=== PATIENT | female | born 2000 | race African-American/Black ===

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

== ENCOUNTER 2022-10-31 09:03 | Emergency (ER) | payer OTHER, SELFPAY ==
[2022-10-31 09:16] VITALS: BP 143/64; PULSE 65; RESP 16; TEMP 36.6; O2SAT 100
--- NOTE | 2022-10-31 09:39 | ED.NAVMDI ---
HPI - Nausea/Vomiting/Diarrhea General Chief complaint: Nausea/Vomiting/Diarrhea Stated complaint: Diarrhea/Abdominal Pain Time Seen by Provider: 10/31/22 09:39 Source: patient Mode of arrival: ambulatory Limitations: no limitations History of Present Illness HPI Narrative: 22 yo F presents with c/o diarrhea for 24 hours. Reports gastric sleeve surgery 1 wk ago in [place]. States that she knows she cannot have NSAIDS. Was unsure what she can take for diarrhea. does have a nurse line number to call where she had surgery but has not called it. No ABD pain. Denies fever/chills. Started drinking protein shakes yesterday and thinks diarrhea may be from that. Pt states i wont be able to work with this diarrhea . Is not scheduled to work for another week. all systems reviewed and negative except as noted above. Related Data Home Medications Medication Instructions Recorded Confirmed ketorolac 10 mg tablet 10 mg PO Q6H PRN Pain 10/31/22 10/31/22 omeprazole 20 mg tablet,delayed 20 mg PO DAILY 10/31/22 10/31/22 release Allergies Allergy/AdvReac Type Severity Reaction Status Date / Time No Known Allergies Allergy Verified 10/31/22 09:39 Review of Systems Review of Systems: CONSTITUTIONAL: Denies fever, chills, or sweats. EYES: Denies visual changes, redness, or discharge. ENT: Denies rhinorrhea, congestion, sore throat, or otalgia. CARDIOVASCULAR: Denies chest pain, palpitations, or edema. RESPIRATORY: Denies cough or dyspnea. GASTROINTESTINAL: Denies abdominal pain, nausea, vomiting . Reports diarrhea. GENITOURINARY: Denies dysuria or hematuria. SKIN: Denies rash or itching. MUSCULOSKELETAL: Denies back pain, joint pain, or myalgia. NEUROLOGIC: Denies headache, numbness, or weakness. PSYCHIATRIC: Denies anxiety or depression. All other systems reviewed are negative, except as documented in HPI. PMFSH Past Medical History Medical History (Updated 11/01/22 @ 00:00 by Background Daemon) Polycystic ovarian disease Prediabetes Comments At time of signature, agree with nursing past medical, surgical, social and family history. There is no relevant family history pertinent to the presenting complaint. Exam Narrative: GENERAL: This is a well-nourished, well-developed patient, in no apparent distress. HEAD: normocephalic, atraumatic. EYES: PERRL. Sclera clear/white. Vision is grossly intact. EARS: External ears normal NOSE: External nose normal NECK: Neck supple, non-tender without lymphadenopathy, masses or thyromegaly. CARDIOVASCULAR: Regular rate and rhythm without murmurs, gallops, or rubs. RESPIRATORY: Clear to auscultation. Breath sounds equal bilaterally. No wheezes, rales, or rhonchi. GASTROINTESTINAL: Abdomen soft, non-tender, nondistended. Bowel sounds are active. No hepato-splenomegaly, or palpable masses. No guarding. Five small incisions from laparoscopic surgery healing well, no drainage or concerns for infection. SKIN: warm, Dry, intact with no suspicious lesions or rash, good texture and turgor. NEURO: awake, alert, and oriented to person, place and time. There were no obvious focal neurologic abnormalities. EXTREMITIES: No joint tenderness, effusion, or edema noted. Course Course Level of Care: Express Care Visit Vital Signs Vital signs: Vital Signs Temperature 36.6 C 10/31/22 09:16 Pulse Rate 65 10/31/22 09:16 Respiratory Rate 16 10/31/22 09:16 Blood Pressure 143/64 H 10/31/22 09:16 Pulse Oximetry 100 10/31/22 09:16 Oxygen Delivery Room Air 10/31/22 09:16 Temperature 36.6 C 10/31/22 09:16 Pulse Rate 65 10/31/22 09:16 Respiratory Rate 16 10/31/22 09:16 Blood Pressure 143/64 H 10/31/22 09:16 Pulse Oximetry 100 10/31/22 09:16 Oxygen Delivery Room Air 10/31/22 09:16 reviewed MDM - Nausea/Vomiting/Diarrhea MDM Narrative Medical decision making narrative: will prescribe Imodium for diarrhea. No abdominal pain on palpation. Incisi
== END 2022-10-31 09:55 | disposition home or self-care (01) ==
PROVIDERS: Emergency Provider Nurse Practitioner Family
DX: R19.7 Diarrhea, unspecified (principal); E28.2 Polycystic ovarian syndrome; R73.03 Prediabetes; Z98.84 Bariatric surgery status
CPT/HCPCS: 99213; G0463